=== PATIENT | female | born 1965 | race Caucasian/White ===

== ENCOUNTER 2019-02-12 07:33 | Day surgery (SDC) | payer OTHER ==
[~2019-02-12] VITALS: Ht 157.5 cm; Wt 71.7 kg
[2019-02-12] MEDS ORDERED: LIDOCAINE 2% 100 MG/5 ML UJET TP ONE (09:04)
[2019-02-12] MEDS ORDERED: fentaNYL 0.05 MG/ML VIAL ONE (09:04)
[2019-02-12] MEDS ORDERED: MIDAZOLAM 2 MG/2 ML VIAL ONE (09:04)
[2019-02-12] MEDS ORDERED: fentaNYL 0.05 MG/ML VIAL IVP ONE (12:00)
[2019-02-12] MEDS ORDERED: MIDAZOLAM 2 MG/2 ML VIAL IVP ONE (12:00)
== END 2019-02-12 11:04 | disposition home or self-care (01) ==
LOC: MMU 07:33 → MDS 07:33
PROVIDERS: ATTEND Internal Medicine Gastroenterology
DX: R19.4 Change in bowel habit (principal); R14.0 Abdominal distension (gaseous); F41.9 Anxiety disorder, unspecified; F32.9 Major depressive disorder, single episode, unspecified; Z79.899 Other long term (current) drug therapy
CPT/HCPCS: 45378; J2250; J3010